=== PATIENT | male | born 1960 | race Caucasian/White ===

== ENCOUNTER 2024-07-29 19:40 | Emergency (ER) | payer OTHER, SELFPAY ==
[2024-07-29 19:44] VITALS: BP 156/84; PULSE 76; RESP 16; TEMP 36.3; O2SAT 96; BMI 28.7
--- NOTE | 2024-07-29 19:56 | CRLHL7_ITS ---
For Patients: As a result of the Cures Act, medical imaging exams and procedure reports are released immediately into your electronic medical record. You may view this report before your referring provider. If you have questions, please contact your health care provider. Indication: Trauma. Technique: Left hand, 2 views. Comparison: None. Findings/Impression: Bones: Alignment is normal. No displaced fractures or bone lesions. Joint spaces: Unremarkable. Soft tissues: Unremarkable. Dictated by Tashi Monson MD @ 07/29/2024 8:33:29 PM (Electronically Signed)
[2024-07-29] MEDS: ACETAMINOPHEN 500 MG TABLET 1000 MG PO (20:04)
--- NOTE | 2024-07-29 20:15 | CRLHL7_ITS ---
For Patients: As a result of the Cures Act, medical imaging exams and procedure reports are released immediately into your electronic medical record. You may view this report before your referring provider. If you have questions, please contact your health care provider. Indication: Trauma. Technique: Left foot, 3 views. Comparison: None. Findings/Impression: Bones: Alignment is normal. No displaced fractures or bone lesions. Joint spaces: Unremarkable. Soft tissues: Unremarkable. Dictated by Tashi Monson MD @ 07/29/2024 8:30:45 PM (Electronically Signed)
--- NOTE | 2024-07-29 20:26 | ED_ITS ---
HPI - Extremity Injury (Lower) General Date Seen: 07/29/24 Chief Complaint: Extremity Pain/Injury, Lower Stated Complaint: possible broken toe, left foot, Time Seen by Provider: 07/29/24 19:43 Source: patient, RN notes reviewed and old records reviewed Mode of arrival: ambulatory Limitations: no limitations History of Present Illness HPI Narrative: Patient is a very nice 63-year-old gentleman who was at work, when a [place] drove across obliquely on his left foot. He complains of pain in his distal foot area, over his 4th and 5th toes. On some bruising. He was wearing steel toe boots. He is able bear weight on his heel and walk normally. And comes in here to be seen at the same time and pulling the [place] off he felt his left 5th finger pop, and thinks there may be some issue with that he has full range of motion of a, with no obvious deviation. Denies any numbness tingling or weakness, he is not on any anticoagulants. Did not take any medications but did match stop for a submarine sandwich before he came in. MD complaint: foot injury Place: work Severity: moderate Relieving factors: nothing Exacerbating factors: weight bearing, movement and palpation Context: direct blow Associated symptoms: swelling, tingling, able to partially bear weight and ambulatory Other symptoms: none Related Data Home Medications ?Medication ?Instructions ?Recorded ?Confirmed No Known Home Medications 07/29/24 07/29/24 Allergies Allergy/AdvReac Type Severity Reaction Status Date / Time iodine Allergy Intermediate Hives Verified 07/29/24 19:50 Review of Systems Status of ROS: Reports: 10 or more systems reviewed and unremarkable except as noted in History and below Exam Narrative: Exam Narrative: On examination in room 3 he is in no apparent distress he is pleasant alert examination of the left hand in the 5th right-hand dominant gentleman shows the left hand has full range of motion at the PIP D IP MCP joints of his 4th and 5th finger, he is able to make a fist there is no loss of contour of his MCPs. Cap refill is normal in sensations normal, he says he just feels like he needs to pop it out. Is no obvious deformity. Flexion extension is entirely normal, turning to his foot, he does have some bruising at the base of his 4th toe, cap refill is normal good sensation DP and posterior tibial pulses are normal he is able to wiggle his toes. No obvious open wound noted. Compression of the forefoot does report reproduce some discomfort. Const: Vital Signs, click to edit/add: Vital Signs - 24 hr 07/29/24 19:44 Temperature 97.4 F L Pulse Rate [Right Pulse Oximeter] 76 Respiratory Rate 16 Blood Pressure [Ri ght Upper Arm] 156/84 H Pulse Oximetry 96 Oxygen Delivery Me thod Room Air Documenting provider has reviewed patient's vital signs: yes Course Vital Signs Vital signs: Initial Vital Signs Temperature 97.4 F L 07/29/24 19:44 Temperature Source Temporal Artery Scan 07/29/24 19:44 Pulse Rate 76 07/29/24 19:44 Pulse Rhythm Regular 07/29/24 19:44 Respiratory Rate 16 07/29/24 19:44 Blood Pressure 156/84 H 07/29/24 19:44 Blood Pressure Mean 108 H 07/29/24 19:44 Blood Pressure Position Sitting 07/29/24 19:44 Pulse Oximetry 96 07/29/24 19:44 Oxygen Delivery Method Room Air 07/29/24 19:44 Vital Signs Temperature 97.4 F L 07/29/24 19:44 Pulse Rate 76 07/29/24 19:44 Respiratory Rate 16 07/29/24 19:44 Blood Pressure 156/84 H 07/29/24 19:44 Pulse Oximetry 96 07/29/24 19:44 Oxygen Delivery Method Room Air 07/29/24 19:44 Temperature 97.4 F L 07/29/24 19:44 Pulse Rate 76 07/29/24 19:44 Respiratory Rate 16 07/29/24 19:44 Blood Pressure 156/84 H 07/29/24 19:44 Pulse Oximetry 96 07/29/24 19:44 Oxygen Delivery Method Room Air 07/29/24 19:44 Medications Administered Medications: Discontinued Medications Generic Name Dose Route Start Last Admin Trade Name Freq PRN Reason Stop Dose Admin Acetaminophen 1,000 mg 07/29/24 19:56 07/29/24 20:04 Acetaminophen 500 Mg Tablet PO 07/29/24 19:57 1,000 mg ONCE ONE Administration MDM - Extremity Injury (Lower) MDM Narrative Medical decision making narrative: I discussed with him he is neurovascularly intact, we will get some x-rays I will give some Tylenol with some ice on it. And go forward with this. Medical Records Attestation: I reviewed the patient's medical records. Lab Data Attestation: I reviewed the patient's lab results. Imaging Data Foot x-ray: Attestation: I have reviewed the pertinent imaging results. My impression: I reviewed the x-ray of his left foot, three views and also his left hand two views I did not see any evidence of a fracture dislocation. Radiologist's impression: [address] [address] Diagnostic Imaging Report Patient: Gumaro Ramsay MR#: [id number] : 1960 Acct:[id number] Loc: ED Service Date: 07/29/[address]: Ordering Physician: Ajay Camilo M.D. Date of Service: 07/29/24 Procedure(s): XR foot LT min 3V Accession Number(s): [id number] cc: Ajay Camilo M.D.~ For Patients: As a result of the Cures Act, medical imaging exams and procedure reports are released immediately into your electronic medical record. You may view this report before your referring provider. If you have questions, please contact your health care provider. Indication: Trauma. Technique: Left foot, 3 views. Comparison: None. Findings/Impression: Bones: Alignment is normal. No displaced fractures or bone lesions. Joint spaces: Unremarkable. Soft tissues: Unremarkable. Dictated by Tashi Monson MD @ 07/29/2024 8:30:45 PM (Electronically [address] [address] Diagnostic Imaging Report Patient: Gumaro Ramsay MR#: [id number] : 1960 Acct:[id number] Loc: ED Service Date: 07/29/[address]: Ordering Physician: Ajay Camilo M.D. Date of Service: 07/29/24 Procedure(s): XR hand LT 2V Accession Number(s): [id number] cc: Ajay Camilo M.D.~ For Patients: As a result of the Cures Act, medical imaging exams and procedure reports are released immediately into your electronic medical record. You may view this report before your referring provider. If you have questions, please contact your health care provider. Indication: Trauma. Technique: Left hand, 2 views. Comparison: None. Findings/Impression: Bones: Alignment is normal. No displaced fractures or bone lesions. Joint spaces: Unremarkable. Soft tissues: Unremarkable. Dictated by Tashi Monson MD @ 07/29/2024 8:33:29 PM (Electronically Signed) Discharge Plan Discharge Clinical Impression: Contusion of foot, Finger injury Patient Disposition: Home, Self-Care Condition: Stable Instructions: Foot Contusion (ED) Additional Instructions: home,rest and use of ibuprofen and tylenol. Xrays are negative Prescriptions: No Action No Known Home Medications Follow Up/Referrals: Provider,Not a Local [Primary Care Provider] - Stand Alone Forms: [employer] Info Instructions
--- OUTSIDE RECORDS SUMMARY | 2024-07-29 21:15 | XMS_ITS | Encounter Summary ---
Author Organization [facility] Address [address] [place] [address] Care Team Providers Care Transverse Abdominal Muscle Surgeon Name Role Phone Marcel Harris MD Primary Care Provider No Ref-Primary, Physician Primary Care Provider Bry Smith MD Unavailable Jenni Hall MD Unavailable [phone] Bry Smith MD Unavailable Olivia Colbert Unavailable Unavailable Encounter Details Date Type Department Care Team (Late st Contact Info) Description 07/15/2021 Documentation Only INTERFACED REPORT Unknown, Provider Social History Tobacco Use Types Packs/Day Years Used Date Smoking Tobacco: Light Smoker Alcohol Use Standard Drinks/Week Comments Never 0 (1 standard drink = 0.6 oz pur e alcohol) AUDIT-C Answer Date Recorded Frequency of Alcohol Consumption Never 09/22/2018 Average Number of Drinks Not on file 019 Frequency of Binge Drinking Not on file 08/26 Sex and Gender Information Value Date Recorded Sex Assigned at Not on file 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 No / Unsure 07/14/2021 9:20 PM CDT documented as of this encounter Plan of Treatment Not on file documented as of this encounter Visit Diagnoses Not on filedocumented in this encounter Care Teams Transverse Abdominal Muscle Surgeon Relationship Specialty Start Date End Date Marcel Harris MD [address] [place] [address] PCP - General Family Medicine 07/15/21 11/17/21 No Ref-Primary, Physician PCP - General 11/18/21 [place] [address] [place] [address] Referring Physician Family Medicine 11/19/21 Jenni Hall MD [address] [place] [address] [address] [place] [address] Dermatology 11/19/21 [place] [address] [address] [place], [place] [id number] Assigned PCP 10/30/21 Olivia Colbert Personal Advocate & Liaison (PAL) Family Medicine 02/06/22 documented as of this encounter
--- OUTSIDE RECORDS SUMMARY | 2024-07-29 21:15 | XMS_ITS | Clinical Summary ---
Author Organization [facility] Address [address] [place] [address] Care Team Providers Care Local Coordinator Name Role Phone No Ref-Primary, Physician Primary Care Provider Bry Smith MD Unavailable Jenni Hall MD Unavailable Bry Smith MD Unavailable Olivia Colbert Unavailable Unavailable Allergies Active Allergy Reactions Criticality Noted Date Comments Iodine 11/28/2015 Pt doesn't know what kind of reaction to what kind of Iodine so was Injected with Isovue [address] CT contrast on 09/22/18 with no ill effects- [facility] Medications atomoxetine (STRATTERA) 100 MG capsule Take 100 mg by mouth daily Active divalproex sodium extended-releas e (DEPAKOTE ER) 500 MG 24 hr tablet Take 3 tablets by mouth At Bedtime 05/12/2021 Active fluticasone (FLONASE) 50 MCG/ACT nasal spray [place] 1 spray into both nostrils daily as needed Active UNKNOWN TO PATIENT Place 1 drop into both eyes daily as needed Medication: Eye drops Active furosemide (LASIX) 20 MG tabletIndicatio ns:Peripheral edema Take 1 tablet (20 mg) by mouth daily as needed 30 tablet 1 11/18/2021 Active Immunizations Name Administration Dates Next Due COVID-19 MONOVALENT 12+ (Pfizer) 08/29/2020,07/26 COVID-19 Monovalent 12+ (Pfizer 2021) 11/18/2021 Hepatitis A (VAQTA)(ADULT 19+) 11/05/2020 Hepatitis B, Adult (Energix-B/Recombivax HB) 12/2020,11/05/2020 Influenza Vaccine >6 months,quad, PF 01/03/2021 Meningococcal ACWY (Menveo ) 11/05/2020 Poliovirus, inactivated (IPV) 11/05/2020 TDAP (Adacel,Boostrix) 11/05/2020,01/26/2012 Typhoid IM 11/05/2020 Yellow Fever 11/05/2020 Zoster recombinant adjuvanted (Shingrix) 021,09/10/2020 Social History Tobacco Use Types Packs/Day Years Used Date Smoking Tobacco: Former Smokeless Tobacco: Never Alcohol Use Standard Drinks/Week Comments Never 0 (1 standard drink = 0.6 oz pur e alcohol) AUDIT-C Answer Date Recorded Frequency of Alcohol Consumption Never 09/22/2018 Average Number of Drinks Not on file 019 Frequency of Binge Drinking Not on file 08/26 PHQ-2 Answer Date Recorded PHQ-2 Score 0 11/18/2021 Adolescent Education Answer Date Record ed Getting School Help Needed Not on file 01/16 Sex and Gender Information Value Date Recorded Sex Assigned at Not on file 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 Gender Identity Not on file Sexual Orientation Not on file 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 Not on file Not on file Not on file Last Filed Vital Signs Vital Sign Reading Time Taken Comments Blood Pressure 141/91 11/18/2021 4:32 PM CDT Pulse 93 11/18/2021 4:32 PM CDT Temperature 36.7 C (98 F) 07/15/2021 8:46 AM CDT Respiratory Rate 16 11/18/2021 4:32 PM CDT Oxygen Saturation 98% 07/15/2021 8:46 AM CDT Inhaled Oxygen Concentration - - Weight 95.7 kg (211 lb) 11/18/2021 4:32 PM CDT Height 177.8 cm (5' 10) 11/18/2021 4:32 PM CDT Body Mass Index 30.28 11/18/2021 4:32 PM CDT Plan of Treatment Health Maintenance Due Date Last Done Comments ADVANCE CARE PLANNING 1960 CT COLONOGRAPHY 1960 FIT 1960 FLEX SIG 1960 sDNA (Cologuard) 1960 COLONOSCOPY 1968 COLORECTAL CANCER SCREENING 1968 HIV SCREENING 1973 LIPID 1998 Pneumococcal Vaccine: 50+ Years (1 of 1 - PCV) 2008 LUNG CANCER SCREENING 09/23/2019 09/22/2018 ANNUAL REVIEW OF HM ORDERS 11/18/2022 11/18/2021 COVID-19 Vaccine ( season) 2023 04/04/2022, 11/18/2021, 04/16/2021, Additional history exists INFLUENZA VACCINE (#1) 2023 04/04/2022, 2020 FALL RISK ASSESSMENT 12/29/2023 MEDICARE ANNUAL WELLNESS VISIT 12/29/2023 PHQ-2 (once per calendar year) 2024 11/18/2021 DIABETES SCREENING 07/15/2024 07/15/2021, 09/22/2018 DTAP/TDAP/TD IMMUNIZATION (3 - Td or Tdap) 11/05/2030 11/05/2020, 01/26/2012 RSV VACCINE (1 - 1-dose 75+ series) 2033 HEPATITIS C SCREENING Completed 09/10/2020 MENINGITIS IMMUNIZATION Aged Out 11/05/2020 No l onger eligible based on patient's age to complete this topic ZOSTER IMMUNIZATION Completed 11/05/2020, HPV IMMUNIZATION Aged Out No longer e ligible based on patient's age to complete this topic Procedures Procedure Name Priority Date/Time Associated Diagnosis Comments BASIC METABOLIC PANEL STAT 07/15/2021 2:[address] CHEST PULMONARY EMBOLISM W CONTRAST STAT 09/22/2018 8:30 PM CDT from Last 3 Months or Most Recently Relevant to Health Maintenance Results * (ABNORMAL) Basic metabolic panel (BMP) (07/15/2021 2:30 AM CDT) Sodium 139 133 - 144 mmol/L 07/15/2021 4:21 AM CDT LABORATORY Potassium 3.7 3.4 - 5.3 mmol/L 07/15/2021 4:21 AM CDT LABORATORY Chloride 107 94 - 109 mmol/L 07/15/2021 4:21 AM CDT LABORATORY Carbon Dioxide (CO2) 30 20 - 32 mmol/L 07/15/2021 4:21 AM CDT LABORATORY Anion Gap 2(L) 3 - 14 mmol/L 07/15/2021 4:21 AM CDT LABORATORY Urea Nitrogen 15 7 - 30 mg/dL 07/15/2021 4:21 AM CDT LABORATORY Creatinine 0.88 0.66 - 1.25 mg/dL 07/15/2021 4:21 AM CDT LABORATORY Calcium 9.1 8.5 - 10.1 mg/dL 07/15/2021 4:21 AM CDT LABORATORY Glucose 87 70 - 99 mg/dL 07/15/2021 4:21 AM CDT LABORATORY GFR Estimate >90 >60 mL/min/1.7 3m2 07/15/2021 4:21 AM CDT LABORATORY Comment:Effective March 282020 eGFRcr in adults is calculated using the 2020 CKD-EPI creatinine equation which includes age and gender (Nicholas et al., NEJM, DOI: 10.1056/EVUVpd5293061) Blood BLOOD SPECIMEN / Unknown Venipuncture / Unknown 07/15/2021 2:30 AM CDT 07/15/2021 4:03 AM CDT us Rhona Purvis DO LAB - BLOOD ORDERABLES Fin al Result LABORATORY [facility] [address] Lab (1st floor, no room number) [place] [address], [facility] [phone] * Chest CT, IV contrast only - PE protocol (09/22/2018 8:30 PM CDT) Anatomical Region Laterality Modality Chest, SUBRAD CT BODY, UMP CT CHEST Computed Tomography Impressions 09/23/2018 8:01 AM CDT IMPRESSION: 1. No visualized pulmonary embolus. 2. No evidence of active pulmonary disease. WALE KO MD Narrative 09/23/2018 8:[address] CHEST WITH CONTRAST 09/22/2018 8:30 PM HISTORY: Postoperative shoulder. Shortness of breath and chest pain. COMPARISON: None. TECHNIQUE: Following the uneventful administration of 73mL Isovue-370 intravenous contrast, helical sections were acquired through the lungs according to the pulmonary embolism protocol. Coronal reconstructions were generated. Radiation dose for this scan was reduced using automated exposure control, adjustment of the mA and/or kV according to the patient's size, or iterative reconstruction technique. FINDINGS: No visualized pulmonary embolus. The thoracic aorta is normal in caliber without dissection. Minimal emphysematous changes in the lungs. The lungs are clear. No pleural or pericardial effusion. No enlarged lymph nodes in the chest. Scan through the upper abdomen is significant for a subcentimeter low-attenuation lesion in the upper pole of the left kidney, too small to characterize. Procedure Note Wale Ko MD - 09/23/2018 CT CHEST WITH CONTRAST 09/22/2018 8:30 PM HISTORY: Postoperative shoulder. Shortness of breath and chest pain. COMPARISON: None. TECHNIQUE: Following the uneventful administration of 73mL Isovue-370 intravenous contrast, helical sections were acquired through the lungs according to the pulmonary embolism protocol. Coronal reconstructions were generated. Radiation dose for this scan was reduced using automated exposure control, adjustment of the mA and/or kV according to the patient's size, or iterative reconstruction technique. FINDINGS: No visualized pulmonary embolus. The thoracic aorta is normal in caliber without dissection. Minimal emphysematous changes in the lungs. The lungs are clear. No pleural or pericardial effusion. No enlarged lymph nodes in the chest. Scan through the upper abdomen is significant for a subcentimeter low-attenuation lesion in the upper pole of the left kidney, too small to characterize. IMPRESSION: 1. No visualized pulmonary embolus. 2. No evidence of active pulmonary disease. WALE KO MD Jaylen Hugo MD IMG CT ORDERABLES Final Result from Last 3 Months or Most Recently Relevant to Health Maintenance [facility] [employer] [address] [place] [id number] Care Teams Local Coordinator Relationship Specialty Start Date End Date No Ref-Primary, Physician PCP - General 11/18/21 [place] [address] [place] [address] Referring Physician Family Medicine 11/19/21 Jenni Hall MD [address] [place] [address] [address] [place] [address] Dermatology 11/19/21 [place] [address] [place], [place] [id number] Assigned PCP 10/30/21 Olivia Colbert Personal Advocate & Liaison (PAL) Family Medicine 02/06/22
--- OUTSIDE RECORDS SUMMARY | 2024-07-29 21:15 | XMS_ITS | Clinical Summary ---
Author Organization [facility] Address [address], [place] [address] Care Team Providers Care Pigment Processor Name Role Phone Unavailable Primary Care Provider Unavailabl e Source Comments You are receiving this document as you are listed as the primary care provider,follow-up provider, or the patient has been referred to you for consultation.This is in compliance with the Medicare andMedicaid EHR Incentive Program,which states Providers who transition their patient to another setting of careor provider of care or refers their patient to another provider of care shouldprovide summary care record for each transition of care or referral. [facility] Allergies Active Allergy Reactions Criticality Noted Date Comments Iodine Other, see comments 11/28/2015 Hives. Other Runny Nose 02/02/2020 Sneezing, itchy watery eyes Medications divalproex (DEPAKOTE) [address] tablet Take 1,500 mg by mouth. Mood disorder. Active azithromycin (ZITHROMAX) 500 MG tabletIndications :Counseling for travel Take 1 tab daily for 3 days as needed for severe travelers diarrhea. 3 Tablet 11/06/19 21 Active atovaquone-progua nil (MALARONE) 250-100 MG tabletIndications :Counseling for travel Take one tab daily. Start 2 days before malarial mosquito exposure [place], daily while there, and continue for 7 days after leaving. 39 Tablet 11/21/19 21 Active fluticasone propionate (FLONASE) 50 MCG/ACT nasal solution 2 Sprays by Nasal route. 09/11/19 21 Active Ketotifen Fumarate (ZADITOR) 0.025 % eye drop solution Place 1 Drop into eye(s). 10/14/19 21 Active olopatadine (PATADAY) 0.2 % eye drop solution Place 1 Drop into eye(s). 09/11/19 21 Active traZODone (DESYREL) 100 MG tablet Take 50-100 mg by mouth at bedtime as needed. 10/04/19 21 Active atomoxetine (STRATTERA) 100 MG capsuleIndication s:Attention Deficit Hyperactivity Disorder 100 mg. Indications: Attention Deficit Hyperactivity Disorder 10/04/19 21 Active OLANZapine (ZYPREXA) 5 MG tablet Take 5-10 mg by mouth daily at bedtime. 07/18/19 22 Active Active Problems No known active problems Immunizations Immunization Administration Dates Next Due Flu Vac (18-64 Yrs), Intradermal 01/12/2013 Flu Vac (3+ yrs) 07/03/2010 Fluzone Qiv Multidose Vial 0.25 (6-35 Mos) 02/18 HepA Adult (19+ yrs) 11/05/2020 HepB Adult (Engerix-B, 20+ yrs, 3 dose series) 0 01/03/2021,11/05/2020 IPV (Polio) 11/05/2020 Influenza ([place] Only) (Flulaval Quad 0.5, 3+ yr s) 02/26/2019 Influenza (Flucelvax), Preserv Free QIV 02/27/20 19 Influenza IIV4 (Quadrivalent) 0.5mL (91751) 12/2020,01/14/2018 Influenza, Unspecified Formulation 07/03/2010 MCV4 Menveo 2m.+ (two vial) 11/05/2020 Moderna Monovalent 12+ 04/16/2021 Pfizer Monovalent 12+ Purple Top 08/29/2020,07/26 Td (7+ yrs) 12/09/1999 Tdap 11/05/2020,01/26/2012 Tetanus Toxoid, Absorbed 07/03/2010 Typhoid (Typhim Vi, IM) 11/05/2020 YF (Yellow Fever) 11/05/2020 Zoster RZV (Shingrix) 11/05/2020,09/10/2020 Social History Tobacco Use Types Packs/Day Years Used Date Smoking Tobacco: Never Smokeless Tobacco: Never Sex and Gender Information Value Date Recorded Sex Assigned at Not on file Legal Sex Male 5:58 AM CDT Gender Identity Not on file Sexual Orientation Not on file Plan of Treatment Health Maintenance Due Date Last Done Comments Hep C Screening (Preventive Services) 1960 PSA Screening Discussion 1960 Adult Preventive Visit 1976 Cholesterol 1993 Pneumococcal 50+ Yrs (1 of 1 - PCV) 2008 Colon Cancer Screening Plan Due 02/28/2012 02/27/2012 MCV4 (2 - Risk 2-dose series) 12/31/2020 11/05/2020 HepA (2 of 2 - Risk 2-dose series) 05/08/2021 11/05/2020 HepB (3) 05/08/2021 01/03/2021, 11/05/2020 COVID-19 Vaccine (4 - season) 2023 04/16/2021, 08/29/2020, 08/08/2020 Influenza (#1) 2023 01/03/2021, 05/2018, 02/26/2019, Additional history exists DTaP/Tdap/Td (3 - Tdap) 11/05/2030 11/06/19 21, 01/26/2012, 12/09/1999 RSV (1 - 1-dose 75+ series) 2033 IPV (Polio) Aged Out 11/05/2020 No longer eligi ble based on patient's age to complete this topic Zoster/Shingles Completed 11/05/2020, 09/10/2020 Hib Aged Out No longer eligi ble based on patient's age to complete this topic Meningococcal B Aged Out No longer el igible based on patient's age to complete this topic Insurance [facility]
--- OUTSIDE RECORDS SUMMARY | 2024-07-29 21:15 | XMS_ITS | Clinical Summary ---
Author Organization [facility] Address [address] [place] [id number] Care Team Providers Care Art Teacher Name Role Phone [facility] Primary Care Provider + Allergies Active Allergy Reactions Criticality Noted Date Comments Iodine Hives Medium 01/27/2020 Pollen Extracts Runny Nose 02/02/2020 Sneezing, itchy watery eyes Medications cetirizine (ZYRTEC) 10 mg tablet Take 1 tablet by mouth once daily. 0 0 Active divalproex (DEPAKOTE ER) 500 mg Extended-Release tablet 1 Active Atomoxetine (STRATTERA) 80 mg capsule 1 Active atomoxetine (STRATTERA) 100 mg capsule 100 mg. 1 Active ketotifen (ZADITOR) 0.025 % (0.035 %) ophthalmic solutionIndicati ons:Environmenta l allergies INSTILL 1 DROP IN BOTH EYES TWICE DAILY 15 mL 3 1 Active fluticasone (50 mcg per actuation) nasal solution (FLONASE)Indicat ions:Environment al allergies SHAKE LIQUID AND USE 2 SPRAYS IN EACH NOSTRIL EVERY DAY 48 g 3 2 Active Compression Socks, Large miscIndications: Lower extremity edema As directed. 6 Each 2 Active olopatadine (PATADAY) 0.2 % ophthalmic solutionIndicati ons:Environmenta l allergies Place 1 Drop into both eyes once daily. Schedule a follow-up appointment. 2.5 mL 2 Active ketoconazole 2% shampoo (NIZORAL) 2 % shampooIndicatio ns:Seborrheic dermatitis USE AT LEAST TWICE A WEEK TO CONTROL THE SEBORRHEIC DERMATITIS ON THE SCALP. IT CAN BE USED DAILY IF NEEDED 120 mL 2 Active oxyCODONE (ROXICODONE) 5 mg immediate release tabletIndication s:Diverticulitis Take 1 Tablet (5 mg) by mouth every 4 hours if needed for Pain. 12 Tablet 2 Active Graduated Compression StockingsIndicat ions:History of edema Follow up with primary care physician. 10 Packet 4 Active cephalexin (KEFLEX) 500 mg capsuleIndicatio ns:Toe infection,Follic ulitis,Great toe pain, left Take 1 Capsule (500 mg) by mouth every 6 hours. 30 Capsule 4 Active mupirocin 2% ointmentIndicati ons:Folliculitis Apply topically to affected area(s) three times daily. 22 g 4 Active Active Problems Problem Noted Date Diagnosed Date Posterior subcapsular polar senile cataract of l eft eye 12/24/2020 Ptosis, bilateral 12/24/2020 History of strabismus surgery 12/24/2020 Dermatochalasis of both upper eyelids 12/24/2020 Ptosis of both eyelids 06/14/2019 Presbyopia 06/14/2019 Regular astigmatism, bilateral 06/14/2019 Myopia, bilateral 06/14/2019 Posterior subcapsular polar senile cataract, lef t 06/14/2019 Tobacco user 07/03/2010 Insomnia 07/03/2010 Bipolar affective disorder 12/21/2006 Resolved Problems Problem Noted Date Diagnosed Date Resolved Date Screening for prostate cancer 05/23/2010 09/10/2020 Immunizations Immunization Administration Dates Next Due AMB INFLUENZA, IIV4 (AGE=>6M OS) MDV (Flu Clinic Only) 02/26/2019 COVID-19 vaccine ([employer] 30mcg/0.3mL) PF, MDV 08/29/2020,08/08/2020 Hepatitis A (Adult) 11/05/2020 Hepatitis B (Adult) 01/03/2021,11/05/2020 Inactivated Polio Vaccine 11/05/2020 Influenza Intradermal PF 18-64 yrs 01/12/2013 Influenza Virus, Unspecified 07/03/2010 Influenza, IIV3 (Age >=3 years) 07/03/2010 Influenza, IIV4 04/04/2022,01/03/2021,01/14/2018 Influenza, IIV4 (=>6mos) MDV 02/18/2015 Influenza,CCIIV4 PRESERV FREE 02/26/2019 MENINGOCOCCAL VACCINE 2 VIAL 2MO-55YO (MENVEO) 11/05/2020 Td (Age >=7 Years) 12/09/1999 Tdap 11/05/2020,01/26/2012 Tetanus Toxoid 07/03/2010 Typhoid (injectable) 11/05/2020 Yellow Fever 11/05/2020 Zoster (Shingrix-RZV, recombinant) 11/05/2020, Family History Medical History Relation Name Comments Good Health Daughter second Cancer-colon Father Lung cancer Father Stomach cancer Father Diabetes Mother Kidney cancer Mother Good Health Sister Older Good Health Son 1 oldest Good Health Son 2 third Relation Name Status Comments Daughter Alive Father Mother Sister Alive Son 1 Alive Son 2 Alive Social History Tobacco Use Types Packs/Day Years Used Date Smoking Tobacco: Former Cigarettes Smokeless Tobacco: Never Comments:He quit almost a ye ar ago- Noted today 09/10/20 Alcohol Use Standard Drinks/Week Comments Not Currently 0 (1 standard drink = 0.6 oz pur e alcohol) PHQ-2 Answer Date Recorded PHQ-2 TOTAL SCORE 0 10/11/2020 Social Connections Answer Date Recorded Do you often feel lonely or isolated from those around you? 0 12/25/2023 Financial Resource Strain Answer Date R ecorded Difficulty of Paying Living Expenses 3 05/28/2024 Difficulty of Paying Living Expenses Not on file 05/28/2024 Food Insecurity Answer Date Recorded Do you worry your food will run out before you are able to buy more? 1 12/25/2023 Transportation Needs Answer Date Record ed Does lack of transportation keep you from medica l appointments? 1 12/25/2023 Does lack of transportation keep you from work, meetings or getting things that you need? 1 12/25/2023 Housing Stability Answer Date Recorded What is your housing situation today? 1 12/25/2023 Utilities Answer Date Recorded Do you have trouble paying f or utilities (for example, heat, electricity, water, phone)? 1 12/25/2023 Sex and Gender Information Value Date Recorded Sex Assigned at Male 09/07/2020 11:18 PM CDT Legal Sex Male 6:43 AM DRIVER COURIER Gender Identity Male 09/07/2020 11:18 PM CDT Sexual Orientation Straight 09/07/2020 11 :18 PM CDT Obstetrics History Last Filed Vital Signs Vital Sign Reading Time Taken Comments Blood Pressure 145/85 12/25/2023 6:09 PM CDT Pulse 85 12/25/2023 6:09 PM CDT Temperature 37.1 C (98.8 F) 12/25/2023 6:09 PM CDT Respiratory Rate 18 12/25/2023 6:09 PM CDT Oxygen Saturation 96% 12/25/2023 6:09 PM CDT Inhaled Oxygen Concentration - - Weight 90.7 kg (200 lb) 04/09/2022 9:45 PM DRIVER COURIER Height 177.8 cm (5' 10) 04/09/2022 9:45 PM DRIVER COURIER Body Mass Index 28.7 04/09/2022 9:45 PM DRIVER COURIER Plan of Treatment Health Maintenance Due Date Last Done Comments HIV for age 15-65 1973 Pneumococcal series for age 50+ (1 of 1 - PCV) 2008 BMI (ht and wt on same day) for age 18+ 09/10/2021 09/10/2020, 01/27/2020 Depression screening for age 12+ 10/11/2021 10/12/19, 10/10/2020 COVID-19 vaccine series ( season) 2023 04/04/2022, 11/18/2021, 04/16/2021, Additional history exists AAA screening age 65-74 12/29/2023 04/09/2022 Influenza Vaccine (Season Ended) 2024 04/04/2022, 01/03/2021, 02/26/2019, Additional history exists Lipids for age 45-75 09/10/2025 09/10/2020, 02/11/2010 (Verified in Care Everywhere or Patient Record) Colonoscopy through age 75 01/28/2028 01/27/2018 Tetanus booster 11/05/2030 11/05/2020, 10/0 04/2011, 12/09/1999 RSV vaccine for adults or (1 - 1-dose 75+ series) 2033 Hepatitis C screening for ag e 18-79 Completed 09/10/2020 Tdap Completed 11/05/2020, 01/26/2012 Zoster (shingles) series for age 50+ Completed 11/05/2020, 09/10/2020 Medical Devices Implanted Type Area Ammonia Worker Device Identifier Shelf Expiration Date Model / Serial / Lot Mesh Inguinal Rt 4x6in 3-D Max - [id number] Implanted:Qty: 1 on 02/02/2020 by Nitin Gorman MD at [facility] Right: Inguinal [employer] 09/21/2024 [id number] / / [id number] Procedures Procedure Name Priority Date/Time Associated Diagnosis Comments CT ABDOMEN PELVIS WO STAT 04/09/2022 11:32 PM DRIVER COURIER ANTI HCV Routine 09/10/2020 2:54 PM CDT Need for hepatitis C screening test LIPID PANEL W REFLEX MEASURED LDL Routine 09/10/2020 2:54 PM CDT Screening for lipid disorders SCAN-COLONOSCOPY 01/27/2018 10:3 0 AM CDT from Last 3 Months or Most Recently Relevant to Health Maintenance Results * CT ABDOMEN PELVIS WO (04/09/2022 11:32 PM DRIVER COURIER) Anatomical Region Laterality Modality Abdomen, Pelvis, AORTA, LIVER, SPLEEN Computed Tomography 04/09/2022 11:5 1 PM DRIVER COURIER Impressions 04/09/2022 11:51 PM DRIVER COURIER Acute sigmoid diverticulitis without extraluminal air. Evaluation for abscess is limited by lack of IV contrast. Coronary artery disease. Please note that all CT scans at this facility use dose modulation, iterative reconstruction, and/or weight-based dosing when appropriate to reduce radiation dose to as low as reasonably achievable. Dictated by Ana María Clement MD @ 04/09/2022 11:51:18 PM (Electronically Signed) Narrative 04/09/2022 11:51 PM DRIVER COURIER For Patients: As a result of the Cures Act, medical imaging exams and procedure reports are released immediately into your electronic medical record. You may view this report before your referring provider. If you have questions, please contact your health care provider. INDICATION: Left lower quadrant pain TECHNIQUE: CT abdomen and pelvis without contrast. COMPARISON: None FINDINGS: Lower chest: Coronary artery calcifications. Liver: Unremarkable. Spleen: Unremarkable. Pancreas: Unremarkable. Gallbladder and bile ducts: Unremarkable. Adrenal glands: Unremarkable. Kidneys: Unremarkable. No kidney or ureteral stones and no hydronephrosis. GI tract: Colonic diverticulosis. There is wall thickening with pericolonic fat stranding involving the proximal sigmoid colon. No extraluminal air. Evaluation for abscess is limited by lack contrast. Appendix is normal. Vascular structures: Unremarkable. Lymph nodes: Unremarkable. Miscellaneous: Small right and moderate left fat containing inguinal hernias. No free air or significant free fluid. Pelvic Organs: Unremarkable. Bones: Unremarkable for age. Procedure Note Ana María Clement MD - 04/09/2022 For Patients: As a result of the Cures Act, medical imagingexams and procedure reports are released immediately into your electronicmedical record. You may view this report before your referring provider.If you have questions, please contact your health care provider. INDICATION: Left lower quadrant pain TECHNIQUE: CT abdomen and pelvis without contrast. COMPARISON: None FINDINGS: Lower chest: Coronary artery calcifications. Liver: Unremarkable. Spleen: Unremarkable. Pancreas: Unremarkable. Gallbladder and bile ducts: Unremarkable. Adrenal glands: Unremarkable. Kidneys: Unremarkable. No kidney or ureteral stones and nohydronephrosis. GI tract: Colonic diverticulosis. There is wall thickening withpericolonic fat stranding involving the proximal sigmoid colon. Noextraluminal air. Evaluation for abscess is limited by lack contrast.Appendix is normal. Vascular structures: Unremarkable. Lymph nodes: Unremarkable. Miscellaneous: Small right and moderate left fat containing inguinalhernias. No free air or significant free fluid. Pelvic Organs: Unremarkable. Bones: Unremarkable for age. IMPRESSION: Acute sigmoid diverticulitis without extraluminal air. Evaluation forabscess is limited by lack of IV contrast. Coronary artery disease. Please note that all CT scans at this facility use dose modulation,iterative reconstruction, and/or weight-based dosing when appropriate toreduce radiation dose to as low as reasonably achievable. Dictated by Ana María Clement MD @ 04/09/2022 11:51:18 PM (Electronically Signed) us Twan Michaels MD CT Fin al Result * LIPID PANEL W REFLEX MEASURED LDL [EBV0419] (09/10/2020 2:54 PM CDT) CHOLESTEROL,TOTAL 191 100 - 199 mg/dL 09/10/2020 6:53 PM CDT [facility] TRIGLYCERIDES 120 <150 mg/dL 09/10/2020 6:53 PM CDT [facility] HDL CHOLESTEROL 51 >40 mg/dL 6:53 PM CDT [facility] NON-HDL CHOLESTEROL 140 <145 mg/dl 09/10/2020 6:53 PM CDT [facility] CHOL/HDL RATIO 3.75 <4.50 09/10/2020 6:53 PM CDT [facility] LDL CHOLESTEROL 116 <=130 mg/dL 09/10/2020 6:53 PM CDT [facility] VLDL CHOLESTEROL 24 mg/dL 09/11/19 6:53 PM CDT [facility] PROVIDER ORDERED STATUS RANDOM 09/10/2020 6:53 PM CDT [facility] Blood BLOOD SPECIMEN / Unknown Butterfly / Unknown 09/10/2020 2:54 PM CDT 09/10/2020 2:54 PM CDT us Marcel Harris MD CHEMISTRY Final Res [facility] [address] [place] [address], * ANTI HCV (09/10/2020 2:54 PM CDT) HEPATITIS C ANTIBODY Non-React tatiana Non-React tatiana 09/10/2020 7:02 PM CDT [facility] Comment:Antibodies to HCV no t detected; does not exclude the possibility of exposure to HCV. Blood BLOOD SPECIMEN / Unknown Butterfly / Unknown 09/10/2020 2:54 PM CDT 09/10/2020 2:54 PM CDT us Marcel Harris MD SEND OUTS Final Res ult [facility] [address] [place] [address], [place] * SCAN-COLONOSCOPY (01/27/2018 10:30 AM CDT) Narrative Procedure Note Suresh Frye MD - 01/27/2018 9:00 AM CDT [facility] [address], [address], [place] [address] Patient Name: Gumaro Ramsay Gender: Male Exam Date: 01/27/2018 Visit Number: [id number] Age: 57 Years 1 Month Date of : 1960 Attending MD: Suresh Frye MD Medical Record#: [id number] ----- Procedure: Colonoscopy Indications: Family history of polyps in patient's sister. Age diagnosed:50-59. Referring MD: iSn العراقي MD Primary MD: El Morales MD Medications: Admitting Medications: 0.9% Normal Saline at TKO Intra Procedure Medications: Patient received monitored anesthesia care. Complications: No immediate complications Procedure: An examination of the heart and lungs was performed and found to be withinacceptable limits. The patient was therefore deemed a reasonablecandidate for endoscopy and monitored anesthesia care. The risks and benefits of the procedure were explained to the patient.After obtaining informed consent, the patient received monitoredanesthesia care and I passed the scope without difficulty via the rectum to the cecum. The appendiceal orificeand ic valve were identified. The scope was retroflexed during theexamination The quality of the prep was excellent (Miralax/Gatorade/2tablets Bisacodyl/Magnesium Citrate). This was a complete examination throughout the entire colon. WDT=7 Findings: Diverticulosis. Location: - sigmoid. Description: moderate. Size:medium. Quantity: many. No inflammation present. Impression: Diverticulosis of colon (without mention of hemorrhage) Family history of colonic polyps Plan Repeat colonoscopy in 5 years. We will attempt to contact you at appropriate intervals via [place] mail. Wemay not be able to find you or contact you at that time, therefore youshould know that the responsibility for following our recommendation restswith you. If you don't hear from us at the time your procedure is due,please contact our office to schedule an appointment. If your contactinformation should change, please contact our office so that we can updateyour records. Electronically signed by: Suresh Frye MD 01/27/2018 Medications: Medication Dose Sig Description PRN Status PRN Reason Comments divalproex ER 500 mg tablet,extended release 24 hr 500 mg take 3 tablet byoral route every day N taking as directed Strattera 80 mg capsule 80 mg take 1 capsule by oral route every day Ntaking as directed Allergies: Medication Name Ingredient Reaction Comment IODINE Hives Vital Signs: Date Time Systolic Diastolic Height Weight BMI 01/27/2018 958 AM 124 81 70 in 199.60 28.60 Race: White Ethnicity: Not or Preferred Language: Frisian cc: El Morales MD cc: Sin العراقي MD [facility] [phone] us Suresh Frye MD OTHER Final Resu lt from Last 3 Months or Most Recently Relevant to Health Maintenance Insurance [employer] COMP Advance Directives * Full Code (Latest Code Status on File) Date Activated Date Inactivated Comments 02/02/2020 3:28 PM 02/02/2020 10:20 PM Question Answer Comments Code Status Discussion: Discussed * Full Code Date Activated Date Inactivated Comments 02/02/2020 12:11 PM 02/02/2020 3:28 PM Question Answer Comments Code Status Discussion: Not Discussed * Full Code Date Activated Date Inactivated Comments 05/07/2009 7:55 AM 05/07/2009 9:48 PM Care Teams Art Teacher Relationship Specialty Start Date End Date [facility] [id number] [place] [address] [facility] - General 04/09/22
== END 2024-07-29 21:55 | disposition home or self-care (01) ==
PROVIDERS: Emergency Provider Family Medicine
DX: S90.32XA Contusion of left foot, initial encounter (principal); M79.645 Pain in left finger(s)
CPT/HCPCS: 73120; 73630; 99283; 99284; A9270